=== PATIENT | male | born 1980 | race Caucasian/White ===

== ENCOUNTER 2020-12-14 17:24 | Emergency (ER) | payer OTHER ==
[2020-12-14 18:36] LABS: BASOPHIL 0.4 % (0-2); EOSINOPHIL 1.3 % (0-5); HCT 46.4 % (42.0-52.0); HGB 15.8 g/dl (13.2-18.0); LYMPHOCYTE 26.7 % (15-48); MCH 30.5 pg (25.0-31.0); MCHC 34.1 g/dL (32.0-36.0); MCV 89.6 fL (78.0-100.0); MONOCYTE 7.4 % (0-12); MPV 9.5 fL (6.0-9.5); NEUTROPHIL 63.8 % (41-80); NRBC 0; PLT 282 K/uL (150-400); RBC 5.18 M/uL (4.70-6.00); RDW 12.6 % (11.5-14.0); WBC 7.2 K/uL (4.0-10.5)
[2020-12-14 19:27] LABS: PRO-BNP 31 pg/mL (<125)
[2020-12-14 19:55] LABS: ALBUMIN 4.4 g/dL (3.4-5.0); BILIRUBIN - TOTAL 0.3 mg/dL (0.2-1.0); BUN/CREAT RATIO (CALC) 15.6 RATIO; CREATININE 0.96 mg/dL (0.67-1.17); GLOBULIN (CALCULATION) 3.4 g/dL; POTASSIUM 4.6 mmol/L (3.5-5.1); TOTAL PROTEIN 7.8 g/dL (6.4-8.2)
[2020-12-15] MEDS ORDERED: ZPAK PO (16:09)
[2020-12-15] MEDS ORDERED: MEDROL 4MG DOSEP4 MG PO (16:09)
[2020-12-15] MEDS ORDERED: ULTRAM50 MG PO (16:09)
[2020-12-15] MEDS ORDERED: NAPROXEN500 MG PO (16:09)
== END 2020-12-14 21:17 | disposition left against medical advice (07) ==
LOC: FER 17:24
PROVIDERS: Emergency Medicine
DX: R07.89 Other chest pain (principal); F17.200 Nicotine dependence, unspecified, uncomplicated; Z53.8 Procedure and treatment not carried out for other reasons; Z20.822 Contact with and (suspected) exposure to COVID-19
CPT/HCPCS: 36415; 71045; 80053; 83880; 84443; 84484; 85025; 85379; 93005; J2405; J7030; U0002

== ENCOUNTER 2020-12-15 15:15 | Emergency (ER) | payer OTHER ==
[2020-12-15] MEDS ORDERED: ULTRAM50 MG PO (16:09)
[2020-12-15] MEDS ORDERED: ZPAK PO (16:09)
[2020-12-15] MEDS ORDERED: MEDROL 4MG DOSEP4 MG PO (16:09)
[2020-12-15] MEDS ORDERED: NAPROXEN500 MG PO (16:09)
== END 2020-12-15 16:24 | disposition home or self-care (01) ==
LOC: FER 15:15
DX: R07.89 Other chest pain (principal); F17.210 Nicotine dependence, cigarettes, uncomplicated
CPT/HCPCS: 93005; J1170; J1885; J2405